=== PATIENT | male | born 1980 | race Caucasian/White ===

== ENCOUNTER 2019-01-13 19:05 | Emergency (ER) ==
[2019-01-13 19:07] VITALS: BP 190/100; TEMP 97.6; BMI 30.6
--- NOTE | 2019-01-13 19:35 | ED.PDOC ---
General ED Provider: Dr. MARIE MURRAY Chief Complaint: Tooth Problem Stated Complaint: toothache for one month has been on [place] Time Seen by Physician: 19:32 Mode of Arrival: Walk-In Information Source: Patient Primary Care Provider: AGUSTIN HENRIQUEZ Nursing and Triage Documentation Reviewed and Agree: Yes Does patient meet sepsis criteria?: No System Inflammatory Response Syndrome: Not Applicable Sepsis Protocol: For patient's 13 years and over: Temp is 96.8 and below OR 101 and greater Pulse >90 BPM Resp >20/minute Acutely Altered Mental Status Are patient's symptoms suggestive of a new infection, such as: -Pneumonia -Skin, Soft Tissue -Endocarditis -UTI -Bone, Joint Infection -Implantable Device -Acute Abdominal Infection -Wound Infection -Meningitis -Blood Stream Catheter Infection -Unknown EENT Complaint Exam - Dental/Oral Complaint/Exam Mechanism of Injury: No known trauma Onset/Duration: 1 month Symptoms Are: Still present Timing: Constant Initial Severity: Moderate Current Severity: Severe Location: diffuse Character: Reports: Aching, Throbbing Aggravating: Reports: Heat, Cold, Chewing Alleviating: Reports: None Associated Signs and Symptoms: Reports: Foul odor, Foul taste in mouth Related History: Reports: Similar episode Tooth Findings: Present: Gross decay, Gross caries Facial Swelling Present: Yes Septal Hematoma: No Foreign Body Present: No Dysphagia Present: No Drooling Present: No Asymmetrical Tonsillar Swelling Present: No Uvula Midline: No Harriett-tonsillar Fluctuence: No Trismus Present: No Palatal Petechiae Present: No Scarlatinaform Rash Present: No Differential Diagnoses: Dental Caries Review of Systems - Review Of Systems Constitutional: Reports: No symptoms Eyes: Reports: No symptoms Ears, Nose, Mouth, Throat: Reports: Mouth pain, Mouth swelling Respiratory: Reports: No symptoms Cardiac: Reports: No symptoms GI: Reports: No symptoms : Reports: No symptoms Musculoskeletal: Reports: No symptoms Skin: Reports: No symptoms Neurological: Reports: No symptoms Endocrine: Reports: No symptoms Hematologic/Lymphatic: Reports: No symptoms All Other Systems: Reviewed and Negative Past Medical History - Past Medical History Endocrine: Reports: None Cardiovascular: Reports: None Respiratory: Reports: None Hematological: Reports: None Gastrointestinal: Reports: GERD Genitourinary: Reports: None Neuro/Psych: Reports: None Musculoskeletal: Reports: None Cancer: Reports: None Other Pertinent Past Medical History: chronic spasms right L3 level - Surgical History General Surgical History: Reports: Other - Family History Family History: Reports: Unknown - Social History Smoking Status: Current every day smoker Hx Substance Use: No Alcohol Screening: Occasionally - Immunizations Tetanus Shot up to Date: No Physical Exam - Physical Exam Appearance: Ill-appearing Ill-appearing: Mild Pain Distress: Severe Eyes: REGGIE, EOMI Neck: Supple Respiratory: Airway patent, Breath sounds clear, Breath sounds equal, Respirations nonlabored Cardiovascular: RRR, Pulses normal, No rub, No murmur Psychiatric: Anxious Critical Care Note - Critical Care Note Total Time (mins): 0 Course - Course Vital Signs: Temp Pulse Resp BP Pulse Ox 01/13/19 19:05 97.6 F 71 18 190/100 H 98 Departure - Departure Time of Disposition: 19:33 Disposition: HOME SELF-CARE Discharge Problem: Dental caries Instructions: Dental Abscess (ED) Condition: Fair Pt referred to PMD for follow-up: Yes IPMP verified?: No (not prescribing a narcotic ) Additional Instructions: Follow up with your dentist as soon as possible take antibiotics and pain medications as prescribed Prescriptions: Clindamycin HCl 300 mg PO TID #30 capsule Ibuprofen [Motrin] 600 mg PO Q6H PRN #30 tablet PRN Reason: Analgesia Allergies/Adverse Reactions: Allergies codeine Adverse Reaction (Verified 01/13/19 19:07) Home Medications: Ambulatory Orders Baclofen 20 mg PO DAILY 01/13/19 Clindamycin HCl 300 mg PO TID #30 capsule 01/13/19 Hydrocodone Bit/Acetaminophen [[place] 10-325] 1 tab PO QID 01/13/19 Ibuprofen [Motrin] 600 mg PO Q6H PRN #30 tablet 01/13/19 Disposition Discussed With: Patient
== END 2019-01-13 19:38 | disposition home or self-care (01) ==
LOC: ED 19:05
DX: K08.89 Other specified disorders of teeth and supporting structures (principal); K02.7 Dental root caries; F17.210 Nicotine dependence, cigarettes, uncomplicated
CPT/HCPCS: 99282